=== PATIENT | female | born 1950 | race Caucasian/White ===

== ENCOUNTER → 2018-06-06 | Outpatient (REF) | payer BC, MEDICARE, OTHER ==
[~2018-06-06] MED LIST: COUM2.5T17 PO; PERC5TAB12 PO; TYLE325T5 PO
== END ==
LOC: M LAB REF 19:00
PROVIDERS: ATTEND Surgery
DX: K92.1 Melena (principal)

== ENCOUNTER → 2018-06-19 | Outpatient (REF) | payer BC, MEDICARE ==
[2018-06-19 11:15] LABS: HEMATOCRIT 46.6 % (36.0-47.0); HEMOGLOBIN 15.3 g/dl (12.0-15.5); MEAN CORPUSCULAR HGB CONC 32.8 g/dl (32.0-36.5); MEAN CORPUSCULAR VOLUME 94.3 fl (80.0-96.0); PLATELET COUNT, AUTOMATED 232 10^3/uL (150-450); RED BLOOD COUNT 4.94 10^6/uL (4.00-5.40); WHITE BLOOD COUNT 6.6 10^3/uL (4.0-10.0)
[2018-06-19 11:24] LABS: ALBUMIN 3.6 GM/DL (3.2-5.2); ALT/SGPT 16 U/L (12-78); BILIRUBIN,TOTAL 0.3 MG/DL (0.2-1.0); BLOOD UREA NITROGEN 14 MG/DL (7-18); C REACTIVE PROTEIN QUANTITATIV < 0.30 MG/DL (0.00-0.30); CALCIUM LEVEL 9.1 MG/DL (8.8-10.2); CARBON DIOXIDE LEVEL 29 MEQ/L (21-32); CHLORIDE LEVEL 108 MEQ/L (98-107); CREATININE FOR GFR 0.79 MG/DL (0.55-1.30); GLOMERULAR FILTRATION RATE > 60.0 (>45); GLUCOSE, FASTING 97 MG/DL (70-100); SODIUM LEVEL 141 MEQ/L (136-145); TOTAL PROTEIN 6.7 GM/DL (6.4-8.2)
[2018-06-19 12:46] LABS: ERYTHROCYTE SEDIMENTATION RATE 13 mm/hr (0-30)
== END ==
LOC: M SFHCPLAZ 09:31
PROVIDERS: ATTEND Internal Medicine Infectious Disease
DX: A42.9 Actinomycosis, unspecified (principal)